=== PATIENT | female | born 1960 | race Caucasian/White ===

== ENCOUNTER → 2019-06-28 | Outpatient (CLI) | payer OTHER ==
[~2019-06-28] MED LIST: ASPIRIN325 OR; CRESTOR20 MG; PLAVIX 300 MG300 MG; PREVACID15 MG; SYNTHROID175 MCG
== END ==
LOC: ULTRA 07:18
DX: K76.0 Fatty (change of) liver, not elsewhere classified (principal); N28.1 Cyst of kidney, acquired